=== PATIENT | female | born 1975 | race Caucasian/White ===

== ENCOUNTER 2016-07-25 04:03 | Emergency (ER) | payer OTHER ==
[~2016-07-25] VITALS: Ht 160 cm; Wt 84.1 kg
[2016-07-25 04:09] VITALS: BP 122/80; PULSE 95; RESP 16; O2SAT 97
--- NOTE | 2016-07-25 04:24 | ED.REPORT ---
HPI-NVD Date of Service Jul 25, 2016 ED Provider: Srinath Santos MD Patient is a 40 year old female who presents to the ED with abdominal pain, vomiting, and diarrhea that began at 8:30pm last night. Patient reports frequent episodes of vomiting and diarrhea since that time, with diffuse abdominal cramping. The patient states that whenever she tries to drink water, her symptoms simply worsen. She becomes dizzy and lightheaded when she stands up. The patient's significant other also reports feeling nauseated and having abdominal cramping. Nursing Notes Stated Complaint: DIARRHEA/ VOMITING Chief Complaint: Female Abdominal Pain Nursing Notes Reviewed: Yes Allergies: Coded Allergies: No Known Allergies (Unverified , 07/25/16) Scheduled Ondansetron ODT (Ondansetron ODT) 8 Mg Tab.rapdis 4-8 MG PO QID General Time Seen by MD: 04:21 Chief Complaint Nausea, Vomiting, Diarrhea, Abd pain, cramping Hx Obtained From: Patient Arrived By: Walk-in Onset Occurred: 9 - 12 hours ago Symptom Duration: Since onset Location: : Diffuse Quality: Cramping Severity: Current: Moderate Severity: Maximum: Severe Recent Healthcare: No recent doctor visit, No recent hospitalization Similar Sx Previous: No Past Medical History Past Medical History none reported Past Surgical History none reported Smoking History Unknown if Ever Smoker Social History Other Social History: Good social support, Local resident Ambulatory Status Independent Review of Systems Constitutional: Denies: Chills, Fever GI: Reports: Abdominal pain, Diarrhea, Nausea, Vomiting Neurologic: Reports: Dizziness, Lightheaded Complete sys rev & neg: except as marked. Physical Exam Initial Vital Signs Vital Signs (First) Date Time Temp Pulse Resp B/P Pulse Ox O2 Delivery O2 Flow Rate FiO2 07/25/16 04:09 36.0 95 16 122/80 97 Room Air Initial VS: Reviewed, Vital signs normal Head / Eyes: Atraumatic, Normocephalic, PERRL Neck: Supple, Full range of motion Respiratory: Breath sounds normal, Clear to auscultation, No respiratory distress Cardiovascular: Regular rate & rhythm, Heart sounds normal Extremities: Vascular intact, Neuro intact Skin: Warm, Dry, No cyanosis Neurologic: Alert, Oriented, Nonfocal Psychiatric: Mood/affect normal, Behavior normal, Normal thought content General/Constitutional: Awake, Alert, No acute distress Distress / Hydration: Positive: Dehydration mild Appearance / Presentation: Positive: Pale tired appearing Abdomen: Soft, Non-tender, No guarding, No rebound ENT: Airway patent Mouth: Positive: Mucous membranes dry Interpretation & Diagnostics Lab Results Interpretation Result Diagram: 07/25/16 0445 07/25/16 0445 Test 07/25/16 04:45 07/25/16 05:00 White Blood Count 10.7th/mm3 (3.8-10.1) Red Blood Count 4.52mil/mm3 (3.90-5.20) Hemoglobin 13.6g/dL (12.0-15.6) Hematocrit 39.9% (35.0-46.0) Mean Corpuscular Volume 88.3fL (81-100) Mean Corpuscular Hemoglobin 30.1pg (27.0-35.0) Mean Corpuscular Hemoglobin Concent 34.1% (32.0-37.0) Red Cell Distribution Width 12.3% (12.3-15.4) Platelet Count 245bil/L (150-400) Neutrophils (%) (Auto) 87.8% (40-74) Lymphocytes (%) (Auto) 6.5% (14-46) Monocytes (%) (Auto) 5.1% (4-12) Eosinophils (%) (Auto) 0.2% (0-5) Basophils (%) (Auto) 0.2% (0-3) Sodium Level 137mEq/L (134-144) Potassium Level 4.2mEq/L (3.5-5.2) Chloride Level 100mEq/L (97-108) Carbon Dioxide Level 21mmol/L (18-29) Blood Urea Nitrogen 10mg/dL (6-24) Creatinine 0.74mg/dL (0.57-1.00) Estimat Glomerular Filtration Rate 125mL/min (>59) Glucose Level 123mg/dL (60-99) Calcium Level 9.2mg/dL (8.5-10.1) Magnesium Level 1.8mg/dL (1.6-2.6) Total Bilirubin 0.7mg/dL (0.0-1.2) Aspartate Amino Transf (AST/SGOT) 14U/L (0-50) Alanine Aminotransferase (ALT/SGPT) 15U/L (0-32) Alkaline Phosphatase 50U/L (25-150) Total Protein 7.1g/dL (6.4-8.4) Albumin 4.3g/dL (3.4-5.0) Lipase 28U/L (13-60) Hold Bhatti Top Tube Received (Received) Hold Urine Received (Received) Re-Eval/Medical Decision Med Decision/Clinical Course Her symptoms are likely due to a viral gastroenteritis, possibly norovirus. She improved dramatically with ondansetron and rehydration. Ondansetron 8 mg ODT, 1/2-1 tablet dissolved orally 4 times a day as needed for nausea and vomiting, #10 prescription written. Imodium 2 mg after each loose bowel movement up to 8 tablets per day, to be purchased [id number]. Drink plenty of fluids. Return as needed. Re-Evaluation/Progress : Time of Eval: 05:56 Patient Status: Condition improved Re-Evaluation/Progress Note: The patient feels much improved. Nothing acute identified on labs. Patient understands and agrees with the plan to be discharged home. Discharge instructions and follow-up discussed. All questions were addressed. Return to the ED warnings given. Counseled Regarding: Diagnosis, Need for follow-up, When/why to return to ED Discharge & Departure Impression: Primary Impression: Gastroenteritis Disposition: Home Discharge Condition All VS Reviewed: Yes Condition: Stable Patient Instructions: Gastroenteritis (ED) Additional Instructions: Your symptoms are likely due to a viral gastroenteritis, possibly norovirus ( the cruise ship virus). Ondansetron 8 mg ODT, 1/2-1 tablet dissolved orally 4 times a day as needed for nausea and vomiting, #10 prescription written. Imodium 2 mg after each loose bowel movement up to 8 tablets per day, to be purchased [id number]. Drink plenty of fluids. Return as needed. Referrals: Ha Lee MD Attestation Portions of this note were transcribed by Rebecca Wyatt. I, Dr. Santos personally performed the history, physical exam and medical decision-making; I reviewed and confirmed the accuracy of the information in the transcribed note. Signed by: Maribel Thompson, 07/25/2016 0558 copies to: Ha Lee MD, Srinath Pineda MD Jul 25, 2016 04:24 Rebecca Wyatt Jul 25, 2016 04:29
[2016-07-25] MEDS ORDERED: 0.9% Sodium Chloride 1,000 ML IV ONE (04:27)
[2016-07-25] MEDS ORDERED: Ondansetron 2 mg/mL 2 mL Inj IVPUSH PRN (04:30)
[2016-07-25] MEDS ORDERED: HYDROmorphone 0.5 mg/0.5 mL iSecure Syringe IVPUSH PRN (04:30)
[2016-07-25 05:09] LABS: BASOPHILS % (AUTO) 0.2 % (0-3); EOSINOPHILS % (AUTO) 0.2 % (0-5); MONOCYTES % (AUTO) 5.1 % (4-12); Mean Corpuscular Hemoglobin 30.1 pg (27.0-35.0); Mean Corpuscular Volume 88.3 fL (81-100); NEUTROPHILS % (AUTO) 87.8 % (40-74); Platelet Count 245 bil/L (150-400)
[2016-07-25 05:30] LABS: Magnesium 1.8 mg/dL (1.6-2.6)
[2016-07-25] MEDS ORDERED: ONDA8TAB10 PO (05:54)
[2016-07-25 06:10] VITALS: BP 103/63; PULSE 82; RESP 16; O2SAT 95
== END 2016-07-25 06:06 | disposition home or self-care (01) ==
LOC: SED 04:03
DX: K52.9 Noninfective gastroenteritis and colitis, unspecified (principal)
CPT/HCPCS: 36415; 80053; 81025; 83690; 83735; 85025; 96361; 96374; 96375; 99284; J1170; J2405; J7030